=== PATIENT | female | born 1990 | race Caucasian/White ===

== ENCOUNTER 2020-12-24 08:06 | Emergency (ER) | payer SELFPAY ==
[2020-12-24 08:18] VITALS: BP 141/86; PULSE 85; RESP 22; TEMP 36.7; O2SAT 98; BMI 31.8
--- NOTE | 2020-12-24 09:00 | US_ITS ---
WS: [id number] RIGHT UPPER QUADRANT ULTRASOUND HISTORY: abd pain COMPARISON: None available. Liver: 15.1 cm in length. Normal size liver. No bile duct dilatation or mass. Gallbladder: Normally distended gallbladder with no stones or wall thickening. CBD: 0.5 cm Pancreas: Normal size and echogenicity. Right kidney: 11.5 cm in length. Normal size and echogenicity. No hydronephrosis or mass. Aorta and IVC: Unremarkable abdominal aorta and IVC. No ascites. US/US gall bladder [id number] IMPRESSION: Normal RIGHT upper quadrant ultrasound.
--- NOTE | 2020-12-24 09:04 | ED_ITS ---
HPI - Abdominal Pain General: Chief Complaint: Abdominal Pain Stated Complaint: ABD Pain Time Seen by Provider: 12/24/20 08:11 History of Present Illness: HPI narrative: 30-year-old female presents emergency room complaining abdominal pain began around 2 AM this morning it woke her up. She is not previously had abdominal pain like this. She states it radiates from the epigastric area into the right and left upper quadrants she has been very nauseated and felt bloated the bloating actually started yesterday. She has not vomited at all she denies any diarrhea no hematemesis coffee-ground emesis. She previously has had an appendectomy and several thera peutic abortions but has not had any other abdominal surgeries. Patient currently has an IUD and is amenorrheic. No fever sweats or chills. No cough or respiratory symptoms. MD elicited complaint: abdominal pain Onset (ago): hour(s) Pain Consistency: constant Location: Epigastric Severity: moderate Quality: cramping Radiation: LUQ and RUQ Exacerbating factors: nothing Relieving factors: nothing Associated Symptoms: Reports anorexia, bloating, GI cramping, nausea and poor appetite; Denies belching, change in bowel habits, change in stool character, chills, coffee ground emesis, constipation, diarrhea, dyspepsia, dysuria, excessive flatus, fever(s), heartburn, hematochezia, hematuria, hematemesis, fecal incontinence, loose stools, melena, syncope and vomiting Review of Systems Const: Denies: fever(s) or chills ENMT: Denies: throat pain, ear or mastoid pain, nasal discharge or nasal congestion Card: Denies: syncope Resp: Denies: dyspnea, productive cough or non-productive cough GI: Reports: nausea, bloating and GI cramping; Denies: vomiting, hematemesis, coffee ground emesis, heartburn, diarrhea, constipation, belching, excessive flatus, fecal incontinence, change in bowel habits, change in stool character, hematochezia or melena : Denies: dysuria or hematuria Skin/Breast: Denies: rash or pruritus PFS ED PFSH: Medical History (Updated 12/24/20 @ 12:59 by Fernando Mccormack MD) No significant past medical history Surgical History (Updated 12/24/20 @ 12:59 by Fernando Mccormack MD) History of laparoscopic appendectomy [place] -- around 2006 Physical Exam Const: COMMON NORMALS: no acute distress GENERAL APPEARANCE: cooperative and comfortable ORIENTATION/CONSCIOUSNESS: Yes awake, Yes oriented to person, Yes oriented to place and Yes oriented to time HENMT: COMMON NORMALS: normocephalic, atraumatic and hearing grossly normal bilaterally HEAD & SCALP: normocephalic and atraumatic Neck/C-Spine: COMMON NORMALS: no JVD Resp: COMMON NORMALS: normal respiratory effort, No retractions, No use of accessory muscles and clear to auscultation bilaterally AUSCULTATION: clear to auscultation bilaterally Cardio: COMMON NORMALS: no JVD, regular rate, regular rhythm and No murmurs present (Cardio) RATE: regular rate RHYTHM: regular rhythm GI: COMMON NORMALS: Soft to palpation and No hepatosplenomegaly present AUSCULTATION: Yes normoactive bowel sounds PALPATION: Yes Soft to palpation, No Tenderness to palpation present (GI), No Guarding due to palpation present (GI) and Yes No hepatosplenomegaly present Extremity: COMMON NORMALS: normal to inspection, capillary refill normal, no clubbing, cyanosis or edema, no calf tenderness and no pedal edema Neuro: SENSORIUM/ORIENTATION: Yes oriented to person, Yes oriented to place and Yes oriented to time Skin: COMMON NORMALS: no rashes or lesions noted GENERAL SKIN EXAM: no rashes or lesions noted Course Vital Signs: Vital signs: Vital Signs Temperature 98.1 F 12/24/20 08:18 Pulse Rate 85 12/24/20 08:18 Respiratory Rate 22 H 12/24/20 08:18 Blood Pressure 141/86 12/24/20 08:18 Pulse Oximetry 98 12/24/20 08:18 MDM - Abdominal Pain MDM Narrative: Medical decision making narrative: Discussed with Dr. Odom. CT findings reviewed. He seen the patient he does not feel she needs surgical intervention at this time he will discharge her home recommends follow-up in the office. Patient reports pain being resolved for the most part. If has recurrence of symptoms return Lab Data: Labs: Lab Results 12/24/20 12/24/20 12/24/20 Range/Units 09:40 09:40 09:40 WBC 13.5 H (4.0-10.0) 10^3/ uL RBC 4.43 (4.1-5.3) 10^6/u L Hgb 13.7 (11.5-15.3) g/dL Hct 41.0 (37.0-47.0) % MCV 92.6 (81-99) fL MCH 30.9 (28.0-34.0) pg MCHC 33.4 (30.0-36.0) g/dL RDW 12.0 L (12.1-15.1) % Plt Count 330 (130-400) 10^3/c mm MPV 10.7 H (7.4-10.4) fL Neut % (Auto) 90.7 % Lymph % (Auto) 6.2 % [place] % (Auto) 2.5 % Eos % (Auto) 0.0 % Baso % (Auto) 0.3 % Neut # (Auto) 12.22 H (1.8-7.7) 10^3/u L Lymph # (Auto) 0.8 (0.8-4.8) 10^3/u L [place] # (Auto) 0.3 (0.2-0.9) 10^3/u L Eos # (Auto) 0.0 (0.0-0.8) 10^3/u L Baso # (Auto) 0.0 (0.0-0.1) 10^3/u L Nucleated RBC % (a uto) 0 % Nucleated RBCs # 0.0 /100WBC Sodium 129 L (136-145) mmol/L Potassium 4.3 (3.5-5.1) mmol/L Chloride 96 L (98-107) mmol/L Carbon Dioxide 24 (22-29) mmol/L Anion Gap 13.3 (5-19) BUN 14 (6-20) mg/dL Creatinine 0.6 (0.5-0.9) mg/dL GFR Calculation 119.0 (90-130) mL/min Glucose 107 (65-115) mg/dL Calculated Osmolal ity 269 L (285-295) mOsm/k g Calcium 9.0 (8.5-10.5) mg/dL Total Bilirubin 0.4 (0.15-1.2) mg/dL AST 22 (0-32) U/L ALT 23 (0-33) U/L Alkaline Phosphata se 99 (35-105) IU/L Creatine Kinase 63 (26-192) U/L Total Protein 8.0 (6.6-8.7) g/dL Albumin 4.6 (3.5-5.2) g/dL Globulin 3.4 (1.3-4.6) g/dL Lipase 25 (13-60) U/L HCG, Qual Negative (Negative) Urine Color (Yellow) Urine Appearance (CLEAR) Urine pH (5-7) Ur Specific Gravit y (1.005-1.030) Urine Protein (Negative) Urine Glucose (UA) (Normal) Urine Ketones (Negative) Urine Blood (Negative) Urine Nitrate (Negative) Urine Bilirubin (Negative) Urine Urobilinogen (Negative) mg/dL Ur Leukocyte Liseth ase (Negative) 12/24/20 Range/Units 09:40 WBC (4.0-10.0) 10^3/ uL RBC (4.1-5.3) 10^6/u L Hgb (11.5-15.3) g/dL Hct (37.0-47.0) % MCV (81-99) fL MCH (28.0-34.0) pg MCHC (30.0-36.0) g/dL RDW (12.1-15.1) % Plt Count (130-400) 10^3/c mm MPV (7.4-10.4) fL Neut % (Auto) % Lymph % (Auto) % [place] % (Auto) % Eos % (Auto) % Baso % (Auto) % Neut # (Auto) (1.8-7.7) 10^3/u L Lymph # (Auto) (0.8-4.8) 10^3/u L [place] # (Auto) (0.2-0.9) 10^3/u L Eos # (Auto) (0.0-0.8) 10^3/u L Baso # (Auto) (0.0-0.1) 10^3/u L Nucleated RBC % (a uto) % Nucleated RBCs # /100WBC Sodium (136-145) mmol/L Potassium (3.5-5.1) mmol/L Chloride (98-107) mmol/L Carbon Dioxide (22-29) mmol/L Anion Gap (5-19) BUN (6-20) mg/dL Creatinine (0.5-0.9) mg/dL GFR Calculation (90-130) mL/min Glucose (65-115) mg/dL Calculated Osmolal ity (285-295) mOsm/k g Calcium (8.5-10.5) mg/dL Total Bilirubin (0.15-1.2) mg/dL AST (0-32) U/L ALT (0-33) U/L Alkaline Phosphata se (35-105) IU/L Creatine Kinase (26-192) U/L Total Protein (6.6-8.7) g/dL Albumin (3.5-5.2) g/dL Globulin (1.3-4.6) g/dL Lipase (13-60) U/L HCG, Qual (Negative) Urine Color Yellow (Yellow) Urine Appearance Clear (CLEAR) Urine pH 7 (5-7) Ur Specific Gravit y 1.010 (1.005-1.030) Urine Protein Neg (Negative) Urine Glucose (UA) Norm (Normal) Urine Ketones Negative (Negative) Urine Blood Neg (Negative) Urine Nitrate Negative (Negative) Urine Bilirubin Neg (Negative) Urine Urobilinogen Norm (Negative) mg/dL Ur Leukocyte Liseth ase Negative (Negative) Discharge Plan Discharge Patient Disposition: Home Clinical Impression: Abdominal pain, Abdominal mass, RLQ (right lower quadrant) Condition: Stable Prescriptions: No Action Kaopectate (bismuth subsalicy) 262 mg Tablet 262 mg PO PRN RF: 0 Discharge Orders: Discharge ED (Routine); Ordered 12/24/20 Ordered By: Indra Coello Referrals: Fernando Mccormack MD [Physician] - Discharge Diet: Usual diet Discharge Activity: Increase activity as tolerated Patient Instructions: Abdominal Pain (ED), Opioid Safety Coding Level of Care Code ED Rn Licensed Practical for Chg Fwd Exam Comprehensive
--- NOTE | 2020-12-24 09:20 | PC.NURSE ---
ultrasound in room
--- NOTE | 2020-12-24 09:33 | CT_ITS ---
WS: [id number] CT ABDOMEN AND PELVIS WITH CONTRAST HISTORY: Diffuse abdominal pain. TECHNIQUE: Imaging performed of the abdomen and pelvis with IV contrast. Single phase imaging of the abdomen. Coronal and sagittal reformats are submitted. All CT scans at [facility] use at least one of these dose optimization techniques: automated exposure control; mA and/or kV adjustment per patient size (includes targeted exams where dose is matched to clinical indication); or iterativ e reconstruction. IV CONTRAST: Visipaque 320; 95 mL IV. Oral contrast: No DLP: 1664.12 mGy.cm COMPARISON: None available. Lower thorax: Lung bases are clear. Heart is normal size. No hiatal hernia. Liver/biliary system: Normal size with no intrahepatic dilatation. Gallbladder: Normal. No gallstones or wall thickening. No pericholecystic fluid. Pancreas: Normal size pancreas and pancreatic duct. No adjacent inflammation. Spleen: Normal size spleen. No mass or infarct. Adrenal glands: Normal. Right kidney: Normal. Left kidney: Normal. Aorta: Normal. Lymphadenopathy: No significant retroperitoneal lymph nodes. Free fluid: None. GI tract: By history patient is status post appendectomy. In the RIGHT lower quadrant near the append ectomy site is a well-circumscribed low-attenuation mass with peripheral enhancement measuring 3.2 x 3.3 cm. There is mild inflammation surrounding this mass. There are a few adjacent lymph nodes. There is no obstruction. There is high density material within the small bowel which is probably medicinal . No additional areas of stricture. Abdominal wall: Unremarkable abdominal wall. No hernia. Pelvis: IUD is in good position. Uterus is midline. Follicles within each ovary. No free fluid. Urina ry bladder is negative. Bones: Unremarkable. CT/CT abdomen pelvis w con* [id number] IMPRESSION: 1. Low-attenuation mass with peripheral wall enhancement and inflammation in t he RIGHT lower quadrant at the appendectomy site. Low-attenuation mass measures 3.2 x 3.3 cm. Differential includes mucocele at the appendectomy site, duplica tion cyst, lymphangioma or neoplasm. Less likely abscess. Recommend surgical ev aluation. 2. No ascites. Notified Indra Coello DO at 12/24/2020 11:41 AM. Not available.
[2020-12-24 09:59] LABS: Add Urine Microscopic? NO; Charge for UA Resulting for Rev
[2020-12-24 10:01] LABS: Basophils % 0.3 %; Hemoglobin 13.7 g/dL (11.5-15.3); Lymphocytes # 0.8 10^3/uL (0.8-4.8); Lymphocytes % 6.2 %; Mean Corpuscular HGB Conc 33.4 g/dL (30.0-36.0); Mean Corpuscular Hemoglobin 30.9 pg (28.0-34.0); Mean Corpuscular Volume 92.6 fL (81-99); Mean Platelet Volume 10.7 fL (7.4-10.4); Monocytes # 0.3 10^3/uL (0.2-0.9); Monocytes % 2.5 %; Neutrophils # 12.22 10^3/uL (1.8-7.7); Neutrophils % 90.7 %; Nucleated Red Blood Cells % 0 %; Platelet Count 330 10^3/cmm (130-400); Red Blood Count 4.43 10^6/uL (4.1-5.3); White Blood Count 13.5 10^3/uL (4.0-10.0)
[2020-12-24 10:14] LABS: HCG, Serum Qual Negative (Negative)
[2020-12-24 10:24] LABS: Alanine Aminotransferase 23 U/L (0-33); Albumin Level 4.6 g/dL (3.5-5.2); Alkaline Phosphatase 99 IU/L (35-105); Anion Gap 13.3 (5-19); Aspartate Amino Transferase 22 U/L (0-32); Blood Urea Nitrogen 14 mg/dL (6-20); Carbon Dioxide 24 mmol/L (22-29); Chloride 96 mmol/L (98-107); Creatine Phosphokinase 63 U/L (26-192); Globulin 3.4 g/dL (1.3-4.6); Glucose 107 mg/dL (65-115); Lipase 25 U/L (13-60); Osmolality Calculated 269 mOsm/kg (285-295); Potassium 4.3 mmol/L (3.5-5.1); Sodium 129 mmol/L (136-145); Total Bilirubin 0.4 mg/dL (0.15-1.2)
[2020-12-24 10:37] LABS: Bilirubin Urine Neg (Negative); Blood Urine Neg (Negative); Glucose Urine UA Norm (Normal); Ketones Urine Negative (Negative); Leukocyte Esterase Urine Negative (Negative); Nitrate Urine Negative (Negative); Protein Urine Neg (Negative); Urine Appearance Clear (CLEAR); Urine Color Yellow (Yellow); Urobilinogen Urine Norm (Negative); pH Urine 7 (5-7)
[2020-12-24] MEDS: diphenhydrAMINE 50 mg/mL SDV 1mL IVP (10:42)
[2020-12-24] MEDS: hydrocortisone 100 mg/2 mL SDV IVP (10:43)
--- NOTE | 2020-12-24 12:46 | P.PN_ITS ---
Vitals/I&O/Wt Last Vital Signs Temp 98.1 F 12/24/20 08:18 Pulse 85 12/24/20 08:18 Resp 22 H 12/24/20 08:18 BP 141/86 12/24/20 08:18 Pulse Ox 98 12/24/20 08:18 Weight last 48 hrs Weight 180 lb Data : 12/24/20 09:40 12/24/20 09:40 CT Abd/Pel: Radiologist's impression: CT abdomen/pelvis 12/24/2020 IMPRESSION: 1. Low-attenuation mass with peripheral wall enhancement and inflammation in the RIGHT lower quadrant at the appendectomy site. Low-attenuation mass measures 3.2 x 3.3 cm. Differential includes mucocele at the appendectomy site, duplication cyst, lymphangioma or neoplasm. Less likely abscess. Recommend surgical evaluation. 2. No ascites. US: Radiologist's impression: RUQ ultrasound 12/24/2020 IMPRESSION: Normal RIGHT upper quadrant ultrasound. A&P Assessment and plan (1) Abdominal pain, right upper quadrant: Status: Acute (2) Abdominal pain, epigastric: Status: Acute (3) Abdominal pain, left upper quadrant: Status: Acute (4) Abdominal mass, RLQ (right lower quadrant): CAT scan reviewed. I do not think this has anything to do with why the patient came into the hospital this morning. 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 I do not think surgery is an urgency at this time, however. She was happy to hear that. Status: Acute Attestations Medical Necessity Statement*: The patient is going to be discharged from the emergency room today at her request. Coding Level of Care Code Acute Accountant Certified Public for [facility] Fwd Diagnoses Abdominal pain, right upper quadrant R10.11 Abdominal pain, epigastric R10.13 Abdominal pain, left upper quadrant R10.12 Abdominal mass, RLQ (right lower quadrant) R19.03
--- NOTE | 2020-12-24 12:53 | PM.CONSULT ---
Providers/Reason For Consult Consulting Physician/Specialty*: General Surgery Fernando Mccormack MD Reason for Consult*: Upper abdominal pain, abnormal right lower quadrant on CAT scan. History of Present Illness History of Present Illness Sis Joy is a 30 year old female who was seen today at the request of Dr. Coello in the emergency department. She says this morning she developed rather severe upper abdominal discomfort which went around her sides to her back. She cannot really tell me that it was worse on one side or the other. This was associated with bloating and a belchy sensation. She developed nausea and vomited but there was no evidence of hematemesis. She took some anti-gas medicine but it did not help. She came to the emergency room and an ultrasound of the upper abdomen revealed no abnormalities. She has never had these kinds of symptoms before and has had no food intolerances, etc. She then had a CAT scan which revealed an area in the right lower quadrant that was suspicious for a possible mucocele or other type of cystic lesion. The patient says that she is now feeling much better and would prefer to go home if possible. Review of Systems General: Reports: 10 or more systems reviewed and unremarkable except in HPI and below Const: Denies: fever(s) GI: Reports: abdominal pain, nausea, vomiting and bloating; Denies: change in bowel habits Meds/Allergies Home Medications and Allergies Home Medications Medication Instructions Recorded Confirmed Last Taken Type bismuth subsalicylate [Kaopectate 262 mg PO PRN 12/24/20 12/24/20 12/24/20 04:30 History (bismuth subsalicy)] Allergies Allergy/AdvReac Type Severity Reaction Status Date / Time iodine Allergy ALGY-Rash Verified 12/24/20 09:07 shellfish derived Allergy Unknown Verified 12/24/20 09:07 PFSH Acute PFSH: Medical History (Updated 12/24/20 @ 12:59 by Fernando Mccormack MD) No significant past medical history Surgical History (Updated 12/24/20 @ 12:59 by Fernando Mccormack MD) History of laparoscopic appendectomy [place] -- around 2006 Vitals/I&O/Wt Last Vital Signs Temp 98.1 F 12/24/20 08:18 Pulse 85 12/24/20 08:18 Resp 22 H 12/24/20 08:18 BP 141/86 12/24/20 08:18 Pulse Ox 98 12/24/20 08:18 Weight last 48 hrs Weight 180 lb Physical Exam Narrative: EXAM NARRATIVE: The patient was encountered in her room in the emergency department. She does not appear to be in any distress. The pupils are equal. No carotid bruits are heard. The lungs are clear. The heart is regular. The abdomen is mildly obese but is soft and reveals good bowel sounds. She has minimal tenderness in the right lower quadrant. She still has mild tenderness in the epigastrium and the right upper quadrant which is exacerbated by palpation and a deep inspiration, but Duckworth's sign is negative. No obvious masses are palpated. The extremities reveal no edema. Neurologically the patient appears to be grossly intact. Data Imaging^: CT Abd/Pel: Radiologist's impression: CT scan abdomen/pelvis 12/24/2020 IMPRESSION: 1. Low-attenuation mass with peripheral wall enhancement and inflammation in the RIGHT lower quadrant at the appendectomy site. Low-attenuation mass measures 3.2 x 3.3 cm. Differential includes mucocele at the appendectomy site, duplication cyst, lymphangioma or neoplasm. Less likely abscess. Recommend surgical evaluation. 2. No ascites. US: Radiologist's impression: RUQ ultrasound 12/24/2020 IMPRESSION: Normal RIGHT upper quadrant ultrasound. A&P Assessment and plan (1) Abdominal pain, right upper quadrant: The patient's symptoms could certainly be suggestive of developing biliary colic. She has never had similar symptoms in the past, however, and her ultrasound shows no obvious abnormalities today. She is now feeling much better and would like to go home. We discussed symptoms of biliary colic in some detail. I told the patient that I had be happy to follow-up with her in the office as an outpatient if she has any interest. In the end, we decided that she was simply going to call if she had any recurring symptoms. Status: Acute (2) Nausea and vomiting: Status: Acute (3) Abnormal CT scan, gastrointestinal tract: CAT scan reviewed. I do not think this has anything to do with why the patient came into the hospital this morning. 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 I do not think surgery is an urgency at this time, however. She was happy to hear that. Status: Acute Consult Attestations Medical Necessity Statement: The patient is going to be discharged from the emergency department today at her request. Coding Level of Care Code Acute Behavioral Health Care Coordinator for Yeni Nicholson Diagnoses Abdominal pain, right upper quadrant R10.11 Nausea and vomiting R11.[address] scan, gastrointestinal tract R93.3
== END 2020-12-24 12:56 | disposition home or self-care (01) ==
PROVIDERS: Emergency Provider Family Medicine
DX: R19.03 Right lower quadrant abdominal swelling, mass and lump (principal); R10.9 Unspecified abdominal pain
CPT/HCPCS: 74177; 76705; 80053; 81003; 82550; 83690; 84703; 85025; 96374; 96375; 99283; J1200; J1720; Q9967